=== PATIENT | female | born 1955 | race Caucasian/White ===

== ENCOUNTER 2018-11-16 08:59 | Inpatient (IN) | payer BC, OTHER ==
[~2018-11-16] VITALS: Ht 162.6 cm; Wt 113.7 kg
[2018-11-16] MEDS ORDERED: ALBUTEROL/IPRATROPIUM 2.5MG/0.5MG, 3 ML NPPB ONE (10:00)
[2018-11-16 10:01] LABS: BASOPHILS # (AUTO) 0.02 x10^3/uL (0-0.1); BASOPHILS % (AUTO) 1 % (0-1); EOSINOPHILS # (AUTO) 0.06 x10^3/uL (0-0.4); EOSINOPHILS % (AUTO) 2 % (1-7); LYMPHOCYTES # (AUTO) 0.57 x10^3/uL (1-3.4); LYMPHOCYTES % (AUTO) 14 % (22-44); MD NO; MEAN CORPUSCULAR HEMOGLOBIN 28.9 pg (27.0-34.8); MEAN CORPUSCULAR HGB CONC 33.6 g/dL (32.4-35.8); MEAN CORPUSCULAR VOLUME 85.8 fL (80-100); MEAN PLATELET VOLUME 7.6 fL (7.4-10.4); MONOCYTES # (AUTO) 0.36 x10^3/uL (0.2-0.8); MONOCYTES % (AUTO) 9 % (2-9); NEUTROPHILS # (AUTO) 3.16 x10^3/uL (1.8-6.8); NEUTROPHILS % (AUTO) 76 % (42-75); PLATELET COUNT 321 x10^3/uL (130-400); RED BLOOD COUNT 4.68 x10^6/uL (3.82-5.3); RED CELL DISTRIBUTION WIDTH 12.9 % (9.6-15.2)
[2018-11-16 10:08] LABS: RAPID INFLUENZA A Negative (Negative); RAPID INFLUENZA B Negative (Negative)
[2018-11-16 10:11] LABS: ALBUMIN 3.6 g/dL (3.4-5.0); ANION GAP 8 mmol/L (5-15); CALCIUM 8.4 mg/dL (8.5-10.1); CHLORIDE 97 mmol/L (98-107); CREATININE 1.01 mg/dL (0.55-1.02)
[2018-11-16] MEDS ORDERED: ALBUTEROL/IPRATROPIUM 2.5MG/0.5MG, 3 ML ONE (10:11)
[2018-11-16 10:15] LABS: TROPONIN I < 0.015 ng/mL (0.000-0.045)
--- NOTE | 2018-11-16 10:55 | NUR ---
Report from Ingrid SHAW. Pt resting in bed. blood drawn at this time. Pt mildy tachypnic, otherwise NAD.
[2018-11-16] MEDS ORDERED: CEFTRIAXONE PMX 1GM/50ML 50 ML IVPB ONE (11:00)
[2018-11-16] MEDS ORDERED: AZITHROMYCIN 500 MG in SODIUM CHLORIDE 0.9% 250 ML IVPB ONE (11:00)
[2018-11-16] MEDS ORDERED: SODIUM CHLORIDE FLUSH 10ML SYR IVF ONE (11:00)
[2018-11-16] MEDS ORDERED: CEFTRIAXONE PMX 1GM/50ML 50 ML ONE (11:05)
[2018-11-16] MEDS ORDERED: OMNIPAQUE 350 MG/ML, 100ML BOTTLE ONE (12:20)
[2018-11-16] MEDS ORDERED: ACETAMINOPHEN 325 MG TABLET PO PRN (12:30)
[2018-11-16] MEDS ORDERED: TEMAZEPAM 15 MG CAPSULE PO PRN (12:30)
[2018-11-16] MEDS ORDERED: DOCUSATE 100 MG CAPSULE PO PRN (12:30)
[2018-11-16] MEDS ORDERED: ONDANSETRON ODT 4 MG PO PRN (12:30)
[2018-11-16] MEDS ORDERED: hydrALAzine 20 MG/ML, 1ML IVPush PRN (12:30)
[2018-11-16] MEDS ORDERED: ONDANSETRON 2MG/ML, 2ML IVPush PRN (12:30)
[2018-11-16] MEDS ORDERED: CEFTRIAXONE PMX 1GM/50ML 50 ML IV SCH (13:00)
[2018-11-16 13:44] VITALS: BP 138/67
[2018-11-16] MEDS ORDERED: ALBUTEROL/IPRATROPIUM 2.5MG/0.5MG, 3 ML NPPB PRN (14:00)
[2018-11-16] MEDS ORDERED: AZITHROMYCIN 250 MG TABLET ONE (14:31)
[2018-11-16 14:43] VITALS: BP 134/67
[2018-11-16] MEDS: methylPREDNISolone SOD SUCC 125 MG/2 ML IVPush SCH (14:51)
[2018-11-16] MEDS: HEPARIN 5,000 UNITS/ML, 1ML SQ SCH ×2 (14:51→20:57)
[2018-11-16] MEDS: AZITHROMYCIN 250 MG TABLET PO SCH (14:51)
[2018-11-16] MEDS: NICOTINE 14MG/24 HR PATCH.TD24 TD SCH (14:56)
[2018-11-16 19:39] VITALS: BP 139/79
[2018-11-16] MEDS: FAMOTIDINE 20 MG TABLET PO SCH (20:57)
[2018-11-16] MEDS: GUAIFENESIN/DM 200-20MG, 10ML UDC PO PRN (21:03)
[2018-11-17 01:07] VITALS: BP 121/70
[2018-11-17] MEDS: methylPREDNISolone SOD SUCC 125 MG/2 ML IVPush SCH ×2 (01:28→12:39)
[2018-11-17] MEDS: HEPARIN 5,000 UNITS/ML, 1ML SQ SCH ×2 (05:05→12:30)
[2018-11-17 05:06] LABS: BASOPHILS # (AUTO) 0.01 x10^3/uL (0-0.1); BASOPHILS % (AUTO) 0 % (0-1); EOSINOPHILS # (AUTO) 0.01 x10^3/uL (0-0.4); EOSINOPHILS % (AUTO) 0 % (1-7); LYMPHOCYTES # (AUTO) 0.52 x10^3/uL (1-3.4); LYMPHOCYTES % (AUTO) 10 % (22-44); MD NO; MEAN CORPUSCULAR HEMOGLOBIN 29.1 pg (27.0-34.8); MEAN CORPUSCULAR HGB CONC 33.8 g/dL (32.4-35.8); MEAN CORPUSCULAR VOLUME 86.1 fL (80-100); MEAN PLATELET VOLUME 7.8 fL (7.4-10.4); MONOCYTES # (AUTO) 0.26 x10^3/uL (0.2-0.8); MONOCYTES % (AUTO) 5 % (2-9); NEUTROPHILS # (AUTO) 4.23 x10^3/uL (1.8-6.8); NEUTROPHILS % (AUTO) 84 % (42-75); PLATELET COUNT 343 x10^3/uL (130-400); RED BLOOD COUNT 4.46 x10^6/uL (3.82-5.3); RED CELL DISTRIBUTION WIDTH 13.1 % (9.6-15.2)
[2018-11-17] MEDS: GUAIFENESIN/DM 200-20MG, 10ML UDC PO PRN (05:06)
[2018-11-17 05:08] LABS: ALANINE AMINOTRANSFERASE 15 U/L (12-78); ALBUMIN 3.3 g/dL (3.4-5.0); ANION GAP 9 mmol/L (5-15); CALCIUM 8.4 mg/dL (8.5-10.1); CHLORIDE 96 mmol/L (98-107)
[2018-11-17 05:11] LABS: ALKALINE PHOSPHATASE 97 U/L (45-117); BILIRUBIN,TOTAL 0.7 mg/dL (0.2-1.0); CREATININE 1.22 mg/dL (0.55-1.02); TOTAL PROTEIN 7.9 g/dL (6.4-8.2)
[2018-11-17] MEDS ORDERED: SODIUM CHLORIDE 0.9% 1,000ML IVBOLUS ONE (08:00)
[2018-11-17] MEDS ORDERED: SODIUM CHLORIDE 0.9% 1,000 ML IV SCH (08:00)
[2018-11-17] MEDS: FAMOTIDINE 20 MG TABLET PO SCH (08:02)
[2018-11-17] MEDS: AZITHROMYCIN 250 MG TABLET PO SCH (08:03)
[2018-11-17 08:27] VITALS: BP 120/64
[2018-11-17] MEDS ORDERED: AZITHROMYCIN 250 MG TABLET PO SCH (09:00)
[2018-11-17] MEDS: NICOTINE 14MG/24 HR PATCH.TD24 TD SCH (12:30)
[2018-11-17] MEDS ORDERED: ALBU8.5H8 INH (13:04)
[2018-11-17] MEDS ORDERED: PRED20TA PO (13:04)
[2018-11-17] MEDS ORDERED: AZIT500T5 PO (13:04)
[2018-11-17 14:58] LABS: ANION GAP 6 mmol/L (5-15); CALCIUM 8.2 mg/dL (8.5-10.1); CHLORIDE 96 mmol/L (98-107); CREATININE 1.07 mg/dL (0.55-1.02)
[2018-11-17] MEDS ORDERED: FLUT1DIS IH (15:16)
[2018-11-17 15:17] VITALS: BP 141/74
== END 2018-11-17 17:01 | disposition home or self-care (01) | DRG 871 ==
LOC: ED 09:50 → EDIP 11:00 → 4WST 13:35
PROVIDERS: ADMIT Internal Medicine; ATTEND Internal Medicine
DX: A41.9 Sepsis, unspecified organism (principal); J15.9 Unspecified bacterial pneumonia; E87.1 Hypo-osmolality and hyponatremia; J44.0 Chronic obstructive pulmonary disease with (acute) lower respiratory infection; J44.1 Chronic obstructive pulmonary disease with (acute) exacerbation; N17.9 Acute kidney failure, unspecified; E78.00 Pure hypercholesterolemia, unspecified; E78.5 Hyperlipidemia, unspecified; F17.200 Nicotine dependence, unspecified, uncomplicated; Z66 Do not resuscitate; H35.30 Unspecified macular degeneration; I10 Essential (primary) hypertension; I35.9 Nonrheumatic aortic valve disorder, unspecified; K52.9 Noninfective gastroenteritis and colitis, unspecified; Z90.710 Acquired absence of both cervix and uterus; Z90.49 Acquired absence of other specified parts of digestive tract
CPT/HCPCS: 36415; 84145; 87400; J7620; 71046; 71275; 80048; 80053; 82040; 83605; 83880; 84484; 85025; 85379; 87040; 93005; 94640; G0378; J0696; J1644; Q9967; J2930; J7030; J7512

== ENCOUNTER 2021-05-11 16:19 | Inpatient (IN) | payer BC ==
[~2021-05-11] VITALS: Ht 162.6 cm; Wt 107.5 kg
[~2021-05-11 16:19] MED LIST: ALBU8.5H8 INH; AZIT500T10 PO; FLUT1DIS IH; PRED20TA PO
--- NOTE | 2021-05-11 16:38 | NUR ---
PROVIDER AT BEDSIDE TO DO EVALUATION
--- NOTE | 2021-05-11 16:39 | NUR ---
PT STATES HAS CHEST PAIN AND COUGH, [facility] TO HAVING PNEUMONIA AND HYPOXIA. PT WAS GIVEN ROCEPHIN AN DOXY AT [facility]. PT HOOKED UP TO OXY MASK AND HAS PAUSING WHILE SPEAKING DUE TO SOB.
[2021-05-11 17:02] LABS: MEAN CORPUSCULAR HEMOGLOBIN 26.8 pg (27.0-34.8); MEAN CORPUSCULAR HGB CONC 32.9 g/dL (32.4-35.8); MEAN PLATELET VOLUME 7.2 fL (7.4-10.4); PLATELET COUNT 566 x10^3/uL (130-400); RED BLOOD COUNT 3.45 x10^6/uL (3.82-5.3); RED CELL DISTRIBUTION WIDTH 15.6 % (9.6-15.2)
[2021-05-11 17:16] LABS: ALBUMIN 2.1 g/dL (3.4-5.0); ANION GAP 9 mmol/L (5-15); CALCIUM 8.5 mg/dL (8.5-10.1); CHLORIDE 100 mmol/L (98-107)
[2021-05-11 17:19] LABS: ALANINE AMINOTRANSFERASE 13 U/L (12-78); ALKALINE PHOSPHATASE 134 U/L (45-117); BILIRUBIN,TOTAL 0.5 mg/dL (0.2-1.0); CREATININE 1.06 mg/dL (0.55-1.02); TOTAL PROTEIN 7.1 g/dL (6.4-8.2)
[2021-05-11 18:02] LABS: <PLATELET ESTIMATE> INCREASED; <PLT MORPHOLOGY> NORMAL PLT MORPH; BAND#(MANUAL) 0.29 x10^3/uL; BANDS%(MANUAL) 1 % (0-7); LYMPH#(MANUAL) 1.73 x10^3/uL (1-3.4); LYMPHS% (MANUAL) 6 % (22-44); MONOS#(MANUAL) 1.73 x10^3/uL (0.3-2.7); MONOS% (MANUAL) 6 % (2-9); SEG#(MANUAL) 25.06 x10^3/uL (1.8-6.8); SEGS% (MANUAL) 87 % (42-75)
--- NOTE | 2021-05-11 18:02 | NUR ---
PT TAKEN OFF OXYGEN TO GET RA READING. WHEN PT REACHED 84%, PLACED BACK ON OXYGEN. PT IS NOT ON HOME OXYGEN
--- NOTE | 2021-05-11 18:02 | NUR ---
PER NO BLOOD CULTURES TO BE DRAWN BECAUSE ANTIBIOTICS GIVEN AT [facility]
[2021-05-11 18:03] LABS: ANISOCYTOSIS 1+; HYPOCHROMIA 1+; MICROCYTOSIS 1+
[2021-05-11 18:05] LABS: OVALOCYTES 1+
--- NOTE | 2021-05-11 18:17 | NUR ---
OFF FLOOR TO CT
[2021-05-11] MEDS ORDERED: ACETAMINOPHEN 500 MG TABLET ONE (18:59)
[2021-05-11] MEDS ORDERED: ACETAMINOPHEN 500 MG TABLET PO ONE (19:00)
--- NOTE | 2021-05-11 19:09 | NUR ---
REPORT GIVEN TO ELOISA SHAW TO ASSUME CARE.
--- NOTE | 2021-05-11 19:12 | NUR ---
RECEIVED BS REPORT FROM VALERIA SAL AND VALERIA NARAYAN TO ASSUME CARE OF PT. AT THIS TIME. PT. WAS MEDICATED PER MAR FOR INCREASED TEMP. PT. DENIES NEEDS AT THIS TIME. ALL MONITORS IN PLACE. ALL SAFETY MEASURES OBERVED. AWATING BED UPSTAIRS AT THIS TIME.
[2021-05-11] MEDS ORDERED: METO25TA91 PO (19:27)
[2021-05-11] MEDS ORDERED: MAGN420T PO (19:27)
[2021-05-11] MEDS ORDERED: POTA20PA25 PO (19:27)
[2021-05-11] MEDS ORDERED: HYDR25TA6 PO (19:27)
[2021-05-11] MEDS ORDERED: CALC-126 PO (19:27)
[2021-05-11] MEDS ORDERED: FURO-93 PO (19:27)
[2021-05-11] MEDS ORDERED: ASPI81TA45 PO (19:27)
[2021-05-11] MEDS ORDERED: WARF2TAB99 PO (19:27)
[2021-05-11] MEDS ORDERED: COLE1TAB2 PO (19:27)
[2021-05-11] MEDS ORDERED: VALS320T2 PO (19:27)
[2021-05-11] MEDS ORDERED: SIMV20TA19 PO (19:27)
--- NOTE | 2021-05-11 19:42 | NUR ---
SM HAS BEEN IN TO EVAL PT. FOR ADMISSION. MED REC COMPLETED.
--- NOTE | 2021-05-11 19:53 | NUR ---
FIRST ATTEMPT TO CALL REPORT TO FLOOR.
[2021-05-11] MEDS ORDERED: ONDANSETRON 2MG/ML, 2ML IVPush PRN (20:00)
[2021-05-11] MEDS ORDERED: morphine SULFATE 10 MG/ML, 1ML IVPush PRN (20:00)
[2021-05-11] MEDS ORDERED: ACETAMINOPHEN 325 MG TABLET PO PRN (20:00)
[2021-05-11] MEDS ORDERED: HYDROcodone/APAP 5/325 TABLET PO PRN (20:00)
[2021-05-11] MEDS ORDERED: ALBUTEROL HFA 90 MCG/SPRAY INH PRN (20:00)
[2021-05-11] MEDS ORDERED: DOCUSATE 100 MG CAPSULE PO PRN (20:00)
[2021-05-11] MEDS ORDERED: ENALAPRILAT 1.25 MG/ML, 2ML IVPush PRN (20:00)
[2021-05-11] MEDS ORDERED: BACLOFEN 10 MG TABLET PO PRN (20:00)
--- NOTE | 2021-05-11 20:00 | NUR ---
REPORT TO VALERIA ESQUEDA. FLOOR READY FOR PT. TRANSPORT.
--- NOTE | 2021-05-11 20:14 | NUR ---
PT. [facility] SHOWED ALLERGY TO METOPROLOL; DISCUSSED WITH PT. PT. STATES SHE IS NOT ALLERGIC TO ANYTHING AND THAT SHE TAKES METOPROLOL DAILY WITH NO ISSUES.
[2021-05-11 20:55] VITALS: BP 147/75
[2021-05-11] MEDS ORDERED: FAMOTIDINE 20 MG TABLET PO SCH (21:00)
[2021-05-11 21:22] LABS: PROTHROMBIN TIME 58.9 Seconds (9.6-11.5)
[2021-05-11] MEDS: ZOLPIDEM 5MG TABLET PO PRN (21:22)
[2021-05-11 21:23] LABS: INTERNATIONAL NORMALIZED RATIO 5.7 (0.93-1.1)
[2021-05-11] MEDS: GUAIFENESIN/DM 200-20MG, 10ML UDC PO PRN (21:23)
[2021-05-11] MEDS: SIMVASTATIN 20 MG TABLET PO SCH (21:23)
[2021-05-12 00:06] VITALS: BP 119/72
[2021-05-12] MEDS: GUAIFENESIN/DM 200-20MG, 10ML UDC PO PRN (04:17)
[2021-05-12 06:04] LABS: INTERNATIONAL NORMALIZED RATIO 6.35 (0.93-1.1); PROTHROMBIN TIME 65.5 Seconds (9.6-11.5)
[2021-05-12 06:05] LABS: ANION GAP 7 mmol/L (5-15); CALCIUM 8.8 mg/dL (8.5-10.1); CHLORIDE 103 mmol/L (98-107)
[2021-05-12 06:18] LABS: CREATININE 1.22 mg/dL (0.55-1.02)
[2021-05-12 06:38] LABS: MEAN CORPUSCULAR HEMOGLOBIN 26.3 pg (27.0-34.8); MEAN CORPUSCULAR HGB CONC 31.4 g/dL (32.4-35.8); MEAN PLATELET VOLUME 7.3 fL (7.4-10.4); PLATELET COUNT 568 x10^3/uL (130-400); RED CELL DISTRIBUTION WIDTH 15.8 % (9.6-15.2)
[2021-05-12 07:15] VITALS: BP 127/78
[2021-05-12 07:20] LABS: BAND#(MANUAL) 0.28 x10^3/uL; BANDS%(MANUAL) 1 % (0-7); LYMPH#(MANUAL) 0.85 x10^3/uL (1-3.4); LYMPHS% (MANUAL) 3 % (22-44); METAMYELOCYTES# (MANUAL) 0.28 x10^3/uL (0-0); METAMYELOCYTES% (MANUAL) 1 % (0-1); MONOS#(MANUAL) 1.13 x10^3/uL (0.3-2.7); MONOS% (MANUAL) 4 % (2-9); SEG#(MANUAL) 25.66 x10^3/uL (1.8-6.8); SEGS% (MANUAL) 91 % (42-75)
[2021-05-12 07:21] LABS: <PLATELET ESTIMATE> INCREASED; ACANTHOCYTES 1+; ANISOCYTOSIS 1+; ECHINOCYTES 1+; HYPOCHROMIA 1+; MICROCYTOSIS 1+; OVALOCYTES 1+; POLYCHROMASIA 1+
[2021-05-12 07:22] LABS: <PLT MORPHOLOGY> NORMAL PLT MORPH
[2021-05-12] MEDS: TEMPLATE NON-FORMULARY MED. (Fluticasone/Salmeterol** (Advair 100-50 Diskus**) 1 PUFF) INH SCH (09:00)
[2021-05-12] MEDS ORDERED: METOPROLOL SUCCINATE 25 MG TAB.ER.24H PO SCH (09:00)
[2021-05-12] MEDS: CEFTRIAXONE 2 GM in DEXTROSE 5% 50 ML IVPB SCH (09:00)
[2021-05-12] MEDS ORDERED: FUROSEMIDE 20 MG/2 ML IV SCH (09:00)
[2021-05-12] MEDS ORDERED: WARFARIN 2 MG TABLET PO-COUM SCH (09:00)
[2021-05-12] MEDS ORDERED: ALBUTEROL/IPRATROPIUM 2.5MG/0.5MG, 3 ML ONE (10:04)
[2021-05-12] MEDS: CALCIUM/VITAMIN D3 250-125 TABLET PO SCH (10:32)
[2021-05-12] MEDS: COLESTIPOL 1 GM TABLET PO SCH (10:32)
[2021-05-12] MEDS: LACTOBACILLUS CHEW TABLET PO SCH ×3 (10:32→20:42)
[2021-05-12] MEDS: ASPIRIN 81 MG TABLET EC PO SCH (10:32)
[2021-05-12] MEDS: HYDROCHLOROTHIAZIDE 25 MG TABLET PO SCH (10:32)
[2021-05-12] MEDS: MAGNESIUM OXIDE 400 MG TABLET PO SCH (10:32)
[2021-05-12] MEDS: POTASSIUM CHLORIDE 20 MEQ PACKET PO SCH (10:33)
[2021-05-12] MEDS: CARVEDILOL 3.125 MG TABLET PO SCH ×2 (10:38→18:02)
[2021-05-12] MEDS: VALSARTAN 320 MG TABLET PO SCH (10:38)
[2021-05-12] MEDS: DOXYCYCLINE 100 MG in DEXTROSE 5% 250 ML IV SCH ×2 (10:47→13:00)
[2021-05-12 11:52] LABS: TROPONIN I < 0.015 ng/mL (0.000-0.045)
[2021-05-12 14:32] VITALS: BP 104/67
[2021-05-12] MEDS ORDERED: ALBUTEROL/IPRATROPIUM 2.5MG/0.5MG, 3 ML NPPB SCH (15:00)
[2021-05-12 19:40] LABS: ANION GAP 6 mmol/L (5-15); CALCIUM 8.4 mg/dL (8.5-10.1); CHLORIDE 103 mmol/L (98-107); CREATININE 0.98 mg/dL (0.55-1.02)
[2021-05-12 19:58] VITALS: BP 100/64
[2021-05-12] MEDS: SODIUM CHLORIDE 0.9% 500 ML IV SCH ×2 (20:41→23:54)
[2021-05-12] MEDS: FAMOTIDINE 20 MG TABLET PO SCH (20:42)
[2021-05-12] MEDS: SIMVASTATIN 20 MG TABLET PO SCH (20:42)
[2021-05-12] MEDS: ALBUTEROL-IPRATROPIUM MDI INH INH SCH (20:56)
[2021-05-12] MEDS: ZOLPIDEM 5MG TABLET PO PRN (21:49)
[2021-05-12] MEDS: ACETAMINOPHEN 325 MG TABLET PO PRN (21:49)
[2021-05-13 00:21] VITALS: BP 108/66
[2021-05-13] MEDS: DOXYCYCLINE 100 MG in DEXTROSE 5% 250 ML IV SCH ×2 (00:53→13:40)
[2021-05-13] MEDS: SODIUM CHLORIDE 0.9% 500 ML IV SCH ×3 (03:20→11:00)
[2021-05-13] MEDS: ALBUTEROL-IPRATROPIUM MDI INH INH SCH ×4 (05:40→21:01)
[2021-05-13] MEDS: CARVEDILOL 3.125 MG TABLET PO SCH ×2 (05:40→17:10)
[2021-05-13 05:48] LABS: MEAN CORPUSCULAR HGB CONC 31.9 g/dL (32.4-35.8); MEAN PLATELET VOLUME 7.3 fL (7.4-10.4); PLATELET COUNT 635 x10^3/uL (130-400); RED BLOOD COUNT 3.25 x10^6/uL (3.82-5.3); RED CELL DISTRIBUTION WIDTH 16.2 % (9.6-15.2)
[2021-05-13 06:01] LABS: INTERNATIONAL NORMALIZED RATIO 5.02 (0.93-1.1)
[2021-05-13 06:11] LABS: CHLORIDE 103 mmol/L (98-107)
[2021-05-13] MEDS: CEFTRIAXONE 2 GM in DEXTROSE 5% 50 ML IVPB SCH (06:11)
[2021-05-13 06:17] LABS: BAND#(MANUAL) 0.41 x10^3/uL; BANDS%(MANUAL) 2 % (0-7); EOS#(MANUAL) 0.41 x10^3/uL (0.0-0.4); EOS% (MANUAL) 2 % (1-7); LYMPH#(MANUAL) 0.41 x10^3/uL (1-3.4); LYMPHS% (MANUAL) 2 % (22-44); METAMYELOCYTES# (MANUAL) 0.21 x10^3/uL (0-0); METAMYELOCYTES% (MANUAL) 1 % (0-1); MONOS#(MANUAL) 1.03 x10^3/uL (0.3-2.7); MONOS% (MANUAL) 5 % (2-9); SEG#(MANUAL) 18.04 x10^3/uL (1.8-6.8); SEGS% (MANUAL) 88 % (42-75)
[2021-05-13 06:18] LABS: % IRON SATURATION 7 % (20-55); ANION GAP 8 mmol/L (5-15); CALCIUM 8.5 mg/dL (8.5-10.1); ECHINOCYTES 1+; FREE T4 (FREE THYROXINE) 1.44 ng/dL (0.76-1.46); IRON LEVEL 21 mcg/dL (50-170); OVALOCYTES 1+; TOTAL IRON BINDING CAPACITY 283 mcg/dL (250-450)
[2021-05-13 06:19] LABS: ANISOCYTOSIS 1+; HYPOCHROMIA 1+; POLYCHROMASIA 1+
[2021-05-13 06:20] LABS: <PLATELET ESTIMATE> INCREASED; <PLT MORPHOLOGY> NORMAL PLT MORPH
[2021-05-13 08:26] VITALS: BP 171/78
[2021-05-13] MEDS: LACTOBACILLUS CHEW TABLET PO SCH ×3 (08:41→21:01)
[2021-05-13] MEDS: POTASSIUM CHLORIDE 20 MEQ PACKET PO SCH (08:41)
[2021-05-13] MEDS: VALSARTAN 320 MG TABLET PO SCH (08:41)
[2021-05-13] MEDS: MAGNESIUM OXIDE 400 MG TABLET PO SCH (08:42)
[2021-05-13] MEDS: HYDROCHLOROTHIAZIDE 25 MG TABLET PO SCH (08:42)
[2021-05-13] MEDS: ASPIRIN 81 MG TABLET EC PO SCH (08:42)
[2021-05-13] MEDS: CALCIUM/VITAMIN D3 250-125 TABLET PO SCH (08:42)
[2021-05-13] MEDS: COLESTIPOL 1 GM TABLET PO SCH (08:43)
[2021-05-13] MEDS: TEMPLATE NON-FORMULARY MED. (Fluticasone/Salmeterol** (Advair 100-50 Diskus**) 1 PUFF) INH SCH (08:44)
[2021-05-13 12:29] VITALS: BP 134/77
[2021-05-13 19:44] VITALS: BP 141/86
[2021-05-13] MEDS: FAMOTIDINE 20 MG TABLET PO SCH (21:01)
[2021-05-13] MEDS: SIMVASTATIN 20 MG TABLET PO SCH (21:01)
[2021-05-13] MEDS: ACETAMINOPHEN 325 MG TABLET PO PRN (22:43)
[2021-05-14] VITALS (7 sets, daily range): BP systolic 99–123; BP diastolic 58–74
[2021-05-14] MEDS: DOXYCYCLINE 100 MG in DEXTROSE 5% 250 ML IV SCH ×2 (01:21→14:56)
[2021-05-14] MEDS: ALBUTEROL-IPRATROPIUM MDI INH INH SCH ×4 (05:46→21:38)
[2021-05-14] MEDS: CARVEDILOL 3.125 MG TABLET PO SCH ×2 (05:47→19:08)
[2021-05-14 06:06] LABS: PROTHROMBIN TIME 59.6 Seconds (9.6-11.5)
[2021-05-14 06:07] LABS: INTERNATIONAL NORMALIZED RATIO 5.76 (0.93-1.1)
[2021-05-14] MEDS: CEFTRIAXONE 2 GM in DEXTROSE 5% 50 ML IVPB SCH (06:53)
[2021-05-14] MEDS: TEMPLATE NON-FORMULARY MED. (Fluticasone/Salmeterol** (Advair 100-50 Diskus**) 1 PUFF) INH SCH (09:00)
[2021-05-14] MEDS ORDERED: ZINC SULFATE 220 MG CAPSULE PO SCH (09:00)
[2021-05-14] MEDS: HYDROCHLOROTHIAZIDE 25 MG TABLET PO SCH (09:00)
[2021-05-14] MEDS: CALCIUM/VITAMIN D3 250-125 TABLET PO SCH (09:00)
[2021-05-14] MEDS: VALSARTAN 320 MG TABLET PO SCH (09:00)
[2021-05-14] MEDS ORDERED: CYANOCOBALAMIN 1,000 MCG/ML, 1ML IM ONE (09:00)
[2021-05-14 10:13] LABS: MEAN PLATELET VOLUME 7.2 fL (7.4-10.4); PLATELET COUNT 616 x10^3/uL (130-400); RED BLOOD COUNT 3.13 x10^6/uL (3.82-5.3); RED CELL DISTRIBUTION WIDTH 15.9 % (9.6-15.2)
[2021-05-14 10:41] LABS: BAND#(MANUAL) 0.44 x10^3/uL; BANDS%(MANUAL) 3 % (0-7); METAMYELOCYTES# (MANUAL) 0.44 x10^3/uL (0-0); METAMYELOCYTES% (MANUAL) 3 % (0-1); SEG#(MANUAL) 11.83 x10^3/uL (1.8-6.8); SEGS% (MANUAL) 81 % (42-75)
[2021-05-14 10:42] LABS: ANISOCYTOSIS 1+; LYMPH#(MANUAL) 1.17 x10^3/uL (1-3.4); LYMPHS% (MANUAL) 8 % (22-44); MONOS#(MANUAL) 0.73 x10^3/uL (0.3-2.7); MONOS% (MANUAL) 5 % (2-9)
[2021-05-14 10:43] LABS: HYPOCHROMIA 1+; OVALOCYTES 1+
[2021-05-14 10:44] LABS: <PLATELET ESTIMATE> INCREASED; <PLT MORPHOLOGY> NORMAL PLT MORPH
[2021-05-14 10:45] LABS: POLYCHROMASIA 1+
[2021-05-14] MEDS: ZINC SULFATE 220 MG CAPSULE PO SCH (11:20)
[2021-05-14] MEDS: MAGNESIUM OXIDE 400 MG TABLET PO SCH (11:20)
[2021-05-14] MEDS: ASPIRIN 81 MG TABLET EC PO SCH (11:20)
[2021-05-14] MEDS: LACTOBACILLUS CHEW TABLET PO SCH ×3 (11:21→21:39)
[2021-05-14] MEDS: POTASSIUM CHLORIDE 20 MEQ PACKET PO SCH (11:22)
[2021-05-14] MEDS: CHOLECALCIFEROL 5,000u TAB PO SCH (11:22)
[2021-05-14] MEDS: MULTIVITS,STRESS FORMULA 1 TABLET PO SCH (11:22)
[2021-05-14] MEDS: COLESTIPOL 1 GM TABLET PO SCH (11:22)
[2021-05-14] MEDS ORDERED: SODIUM CHLORIDE 0.9% IV ONE (12:00)
[2021-05-14] MEDS ORDERED: IRON DEXTRAN COMPLEX IV ONE (12:00)
[2021-05-14] MEDS ORDERED: EPINEPHRINE 1 MG/ML, 1ML IV PRN (12:30)
[2021-05-14] MEDS ORDERED: IRON DEXTRAN COMPLEX 25 MG in SODIUM CHLORIDE 0.9% 50 ML IV ONE (13:00)
[2021-05-14] MEDS: ACETAMINOPHEN 325 MG TABLET PO PRN ×2 (13:41→21:38)
[2021-05-14] MEDS: GUAIFENESIN/DM 200-20MG, 10ML UDC PO PRN ×2 (13:41→21:39)
[2021-05-14] MEDS: FUROSEMIDE 40 MG/4 ML IV SCH ×2 (13:50→21:38)
[2021-05-14] MEDS ORDERED: IRON DEXTRAN COMPLEX 1,400 MG in SODIUM CHLORIDE 0.9% 250 ML IV ONE (14:00)
[2021-05-14] MEDS: ASCORBIC ACID 500 MG TABLET PO SCH (16:24)
[2021-05-14] MEDS: FAMOTIDINE 20 MG TABLET PO SCH (21:39)
[2021-05-14] MEDS: SIMVASTATIN 20 MG TABLET PO SCH (21:39)
[2021-05-14] MEDS: ZOLPIDEM 5MG TABLET PO PRN (21:40)
[2021-05-15] VITALS (7 sets, daily range): BP systolic 111–170; BP diastolic 63–92
[2021-05-15] MEDS ORDERED: HYDROcodone/APAP 5/325 TABLET PO ONE (02:00)
[2021-05-15] MEDS: DOXYCYCLINE 100 MG in DEXTROSE 5% 250 ML IV SCH ×2 (02:17→13:57)
[2021-05-15] MEDS: GUAIFENESIN/DM 200-20MG, 10ML UDC PO PRN (04:48)
[2021-05-15] MEDS: ACETAMINOPHEN 325 MG TABLET PO PRN ×2 (04:49→21:45)
[2021-05-15] MEDS: CARVEDILOL 3.125 MG TABLET PO SCH ×2 (06:00→18:13)
[2021-05-15] MEDS: ALBUTEROL-IPRATROPIUM MDI INH INH SCH ×2 (06:06→11:00)
[2021-05-15 06:19] LABS: ANION GAP 8 mmol/L (5-15); CALCIUM 8.7 mg/dL (8.5-10.1); CHLORIDE 96 mmol/L (98-107)
[2021-05-15 06:21] LABS: CREATININE 0.93 mg/dL (0.55-1.02)
[2021-05-15 06:25] LABS: INTERNATIONAL NORMALIZED RATIO 7.28 (0.93-1.1); PROTHROMBIN TIME 74.9 Seconds (9.6-11.5)
[2021-05-15 06:59] LABS: MEAN CORPUSCULAR HEMOGLOBIN 27.1 pg (27.0-34.8); MEAN CORPUSCULAR HGB CONC 33.2 g/dL (32.4-35.8); PLATELET COUNT 537 x10^3/uL (130-400); RED BLOOD COUNT 3.25 x10^6/uL (3.82-5.3); RED CELL DISTRIBUTION WIDTH 15.6 % (9.6-15.2)
[2021-05-15 07:25] LABS: BAND#(MANUAL) 0.36 x10^3/uL; BANDS%(MANUAL) 3 % (0-7); LYMPH#(MANUAL) 1.43 x10^3/uL (1-3.4); LYMPHS% (MANUAL) 12 % (22-44); METAMYELOCYTES# (MANUAL) 0.12 x10^3/uL (0-0); METAMYELOCYTES% (MANUAL) 1 % (0-1); MONOS#(MANUAL) 0.83 x10^3/uL (0.3-2.7); MONOS% (MANUAL) 7 % (2-9); SEG#(MANUAL) 9.16 x10^3/uL (1.8-6.8); SEGS% (MANUAL) 77 % (42-75)
[2021-05-15 07:26] LABS: ANISOCYTOSIS 1+; HYPOCHROMIA 1+; MICROCYTOSIS 1+; OVALOCYTES 1+; POLYCHROMASIA 1+; TEAR DROPS 1+
[2021-05-15 07:27] LABS: <PLATELET ESTIMATE> INCREASED; <PLT MORPHOLOGY> NORMAL PLT MORPH; ACANTHOCYTES 1+; TOXIC GRAN 1+
[2021-05-15] MEDS: CEFTRIAXONE 2 GM in DEXTROSE 5% 50 ML IVPB SCH (08:10)
[2021-05-15] MEDS: ASCORBIC ACID 500 MG TABLET PO SCH ×2 (08:23→15:38)
[2021-05-15] MEDS: VALSARTAN 320 MG TABLET PO SCH (09:00)
[2021-05-15] MEDS: TEMPLATE NON-FORMULARY MED. (Fluticasone/Salmeterol** (Advair 100-50 Diskus**) 1 PUFF) INH SCH (09:00)
[2021-05-15] MEDS: HYDROCHLOROTHIAZIDE 25 MG TABLET PO SCH (09:33)
[2021-05-15] MEDS: POTASSIUM CHLORIDE 20 MEQ PACKET PO SCH (09:33)
[2021-05-15] MEDS: CALCIUM/VITAMIN D3 250-125 TABLET PO SCH (09:33)
[2021-05-15] MEDS: MAGNESIUM OXIDE 400 MG TABLET PO SCH (09:33)
[2021-05-15] MEDS: MULTIVITS,STRESS FORMULA 1 TABLET PO SCH (09:33)
[2021-05-15] MEDS: LACTOBACILLUS CHEW TABLET PO SCH ×3 (09:34→21:10)
[2021-05-15] MEDS: ZINC SULFATE 220 MG CAPSULE PO SCH (09:34)
[2021-05-15] MEDS: FUROSEMIDE 40 MG/4 ML IV SCH ×2 (09:34→21:10)
[2021-05-15] MEDS: CHOLECALCIFEROL 5,000u TAB PO SCH (09:34)
[2021-05-15] MEDS: ASPIRIN 81 MG TABLET EC PO SCH (09:34)
[2021-05-15] MEDS: COLESTIPOL 1 GM TABLET PO SCH (09:34)
[2021-05-15] MEDS ORDERED: PHYTONADIONE 5 MG TABLET PO ONE (15:30)
[2021-05-15] MEDS: FAMOTIDINE 20 MG TABLET PO SCH (21:00)
[2021-05-15] MEDS: SIMVASTATIN 20 MG TABLET PO SCH (21:10)
[2021-05-16] MEDS: DOXYCYCLINE 100 MG in DEXTROSE 5% 250 ML IV SCH ×2 (00:51→12:53)
[2021-05-16 01:20] VITALS: BP 147/84
[2021-05-16 05:48] LABS: INTERNATIONAL NORMALIZED RATIO 2.03 (0.93-1.1); PROTHROMBIN TIME 21.4 Seconds (9.6-11.5)
[2021-05-16] MEDS: CARVEDILOL 3.125 MG TABLET PO SCH ×2 (06:00→17:09)
[2021-05-16 07:21] VITALS: BP 128/76
[2021-05-16] MEDS: CHOLECALCIFEROL 5,000u TAB PO SCH (08:09)
[2021-05-16] MEDS: HYDROCHLOROTHIAZIDE 25 MG TABLET PO SCH (08:09)
[2021-05-16] MEDS: MAGNESIUM OXIDE 400 MG TABLET PO SCH (08:09)
[2021-05-16] MEDS: VALSARTAN 320 MG TABLET PO SCH (08:09)
[2021-05-16] MEDS: LACTOBACILLUS CHEW TABLET PO SCH ×3 (08:09→20:38)
[2021-05-16] MEDS: POTASSIUM CHLORIDE 20 MEQ PACKET PO SCH (08:09)
[2021-05-16] MEDS: ASPIRIN 81 MG TABLET EC PO SCH (08:09)
[2021-05-16] MEDS: CALCIUM/VITAMIN D3 250-125 TABLET PO SCH (08:09)
[2021-05-16] MEDS: ASCORBIC ACID 500 MG TABLET PO SCH ×2 (08:09→17:08)
[2021-05-16] MEDS: MULTIVITS,STRESS FORMULA 1 TABLET PO SCH (08:09)
[2021-05-16] MEDS: COLESTIPOL 1 GM TABLET PO SCH (08:09)
[2021-05-16] MEDS: ZINC SULFATE 220 MG CAPSULE PO SCH (08:09)
[2021-05-16] MEDS: CEFTRIAXONE 2 GM in DEXTROSE 5% 50 ML IVPB SCH (08:10)
[2021-05-16] MEDS: TEMPLATE NON-FORMULARY MED. (Fluticasone/Salmeterol** (Advair 100-50 Diskus**) 1 PUFF) INH SCH (08:10)
[2021-05-16] MEDS ORDERED: PROPOFOL 10 MG/ML, 20ML ONE (09:04)
[2021-05-16] MEDS ORDERED: ATROPINE SYRINGE 0.1 MG/ML, 10ML ONE (09:06)
[2021-05-16 12:58] VITALS: BP 154/72
[2021-05-16 17:11] VITALS: BP 124/69
[2021-05-16] MEDS ORDERED: WARFARIN 2 MG TABLET PO-COUM ONE (18:00)
[2021-05-16 19:09] VITALS: BP 123/76
[2021-05-16] MEDS: FAMOTIDINE 20 MG TABLET PO SCH (20:37)
[2021-05-16] MEDS: SIMVASTATIN 20 MG TABLET PO SCH (20:38)
[2021-05-17] MEDS: DOXYCYCLINE 100 MG in DEXTROSE 5% 250 ML IV SCH ×2 (00:27→12:23)
[2021-05-17 02:30] VITALS: BP 125/74
[2021-05-17 04:59] LABS: MEAN CORPUSCULAR HEMOGLOBIN 27.3 pg (27.0-34.8); MEAN CORPUSCULAR HGB CONC 33.5 g/dL (32.4-35.8); PLATELET COUNT 642 x10^3/uL (130-400); RED BLOOD COUNT 3.48 x10^6/uL (3.82-5.3); RED CELL DISTRIBUTION WIDTH 15.6 % (9.6-15.2)
[2021-05-17 05:07] LABS: ALBUMIN 2.5 g/dL (3.4-5.0); ANION GAP 6 mmol/L (5-15); CALCIUM 9.2 mg/dL (8.5-10.1); CHLORIDE 90 mmol/L (98-107); CREATININE 0.83 mg/dL (0.55-1.02); INTERNATIONAL NORMALIZED RATIO 1.33 (0.93-1.1); PROTHROMBIN TIME 14.2 Seconds (9.6-11.5)
[2021-05-17 05:38] VITALS: BP 108/73
[2021-05-17] MEDS: CARVEDILOL 3.125 MG TABLET PO SCH ×2 (05:52→17:09)
[2021-05-17 06:02] LABS: BAND#(MANUAL) 0.73 x10^3/uL; BANDS%(MANUAL) 4 % (0-7); EOS% (MANUAL) 2 % (1-7); LYMPH#(MANUAL) 2.18 x10^3/uL (1-3.4); LYMPHS% (MANUAL) 12 % (22-44); METAMYELOCYTES# (MANUAL) 0.55 x10^3/uL (0-0); METAMYELOCYTES% (MANUAL) 3 % (0-1); MONOS#(MANUAL) 0.55 x10^3/uL (0.3-2.7); MONOS% (MANUAL) 3 % (2-9); SEG#(MANUAL) 13.83 x10^3/uL (1.8-6.8); SEGS% (MANUAL) 76 % (42-75)
[2021-05-17 06:03] LABS: ANISOCYTOSIS 1+; EOS#(MANUAL) 0.36 x10^3/uL (0.0-0.4); HYPOCHROMIA 1+; OVALOCYTES 1+; POLYCHROMASIA 1+
[2021-05-17 06:05] LABS: <PLATELET ESTIMATE> INCREASED; <PLT MORPHOLOGY> NORMAL PLT MORPH
[2021-05-17 07:05] VITALS: BP 116/70
[2021-05-17] MEDS: CEFTRIAXONE 2 GM in DEXTROSE 5% 50 ML IVPB SCH (07:28)
[2021-05-17] MEDS: TEMPLATE NON-FORMULARY MED. (Fluticasone/Salmeterol** (Advair 100-50 Diskus**) 1 PUFF) INH SCH (08:13)
[2021-05-17] MEDS: ASCORBIC ACID 500 MG TABLET PO SCH ×2 (08:23→17:09)
[2021-05-17] MEDS: COLESTIPOL 1 GM TABLET PO SCH (08:23)
[2021-05-17] MEDS: CHOLECALCIFEROL 5,000u TAB PO SCH (08:23)
[2021-05-17] MEDS: ASPIRIN 81 MG TABLET EC PO SCH (08:23)
[2021-05-17] MEDS: POTASSIUM CHLORIDE 20 MEQ PACKET PO SCH (08:23)
[2021-05-17] MEDS: HYDROCHLOROTHIAZIDE 25 MG TABLET PO SCH (08:23)
[2021-05-17] MEDS: LACTOBACILLUS CHEW TABLET PO SCH ×3 (08:23→21:37)
[2021-05-17] MEDS: VALSARTAN 320 MG TABLET PO SCH (08:23)
[2021-05-17] MEDS: MAGNESIUM OXIDE 400 MG TABLET PO SCH (08:23)
[2021-05-17] MEDS: MULTIVITS,STRESS FORMULA 1 TABLET PO SCH (08:24)
[2021-05-17] MEDS: ZINC SULFATE 220 MG CAPSULE PO SCH (08:24)
[2021-05-17] MEDS: CALCIUM/VITAMIN D3 250-125 TABLET PO SCH (08:24)
[2021-05-17 14:13] VITALS: BP 104/71
[2021-05-17 17:09] VITALS: BP 110/69
[2021-05-17] MEDS ORDERED: WARFARIN 5 MG TABLET PO-COUM ONE (18:00)
[2021-05-17 19:13] VITALS: BP 106/71
[2021-05-17] MEDS: FAMOTIDINE 20 MG TABLET PO SCH (21:37)
[2021-05-17] MEDS: SIMVASTATIN 20 MG TABLET PO SCH (21:37)
[2021-05-18] MEDS: DOXYCYCLINE 100 MG in DEXTROSE 5% 250 ML IV SCH (00:41)
[2021-05-18 02:00] VITALS: BP 115/73
[2021-05-18] MEDS: CARVEDILOL 3.125 MG TABLET PO SCH (05:17)
[2021-05-18 05:46] LABS: INTERNATIONAL NORMALIZED RATIO 1.78 (0.93-1.1); PROTHROMBIN TIME 18.8 Seconds (9.6-11.5)
[2021-05-18 05:47] LABS: BASOPHILS % (AUTO) 0 % (0-1); EOSINOPHILS % (AUTO) 3 % (1-7); LYMPHOCYTES % (AUTO) 11 % (22-44); MEAN CORPUSCULAR HEMOGLOBIN 27.1 pg (27.0-34.8); MEAN CORPUSCULAR HGB CONC 32.9 g/dL (32.4-35.8); MEAN PLATELET VOLUME 7.1 fL (7.4-10.4); MONOCYTES % (AUTO) 6 % (2-9); NEUTROPHILS % (AUTO) 80 % (42-75); PLATELET COUNT 488 x10^3/uL (130-400); RED BLOOD COUNT 3.31 x10^6/uL (3.82-5.3); RED CELL DISTRIBUTION WIDTH 16.4 % (9.6-15.2)
[2021-05-18 05:48] LABS: ALBUMIN 2.2 g/dL (3.4-5.0); ANION GAP 5 mmol/L (5-15); CALCIUM 8.8 mg/dL (8.5-10.1); CHLORIDE 93 mmol/L (98-107); CREATININE 0.76 mg/dL (0.55-1.02)
[2021-05-18 06:32] VITALS: BP 113/64
[2021-05-18] MEDS: CEFTRIAXONE 2 GM in DEXTROSE 5% 50 ML IVPB SCH (07:31)
[2021-05-18] MEDS: ASPIRIN 81 MG TABLET EC PO SCH (07:56)
[2021-05-18] MEDS: ASCORBIC ACID 500 MG TABLET PO SCH (07:56)
[2021-05-18] MEDS: COLESTIPOL 1 GM TABLET PO SCH (07:56)
[2021-05-18] MEDS: POTASSIUM CHLORIDE 20 MEQ PACKET PO SCH (07:57)
[2021-05-18] MEDS: VALSARTAN 320 MG TABLET PO SCH (07:57)
[2021-05-18] MEDS: ZINC SULFATE 220 MG CAPSULE PO SCH (07:57)
[2021-05-18] MEDS: MULTIVITS,STRESS FORMULA 1 TABLET PO SCH (07:57)
[2021-05-18] MEDS: MAGNESIUM OXIDE 400 MG TABLET PO SCH (07:57)
[2021-05-18] MEDS: HYDROCHLOROTHIAZIDE 25 MG TABLET PO SCH (07:57)
[2021-05-18] MEDS: CHOLECALCIFEROL 5,000u TAB PO SCH (07:58)
[2021-05-18] MEDS: LACTOBACILLUS CHEW TABLET PO SCH (07:58)
[2021-05-18] MEDS: TEMPLATE NON-FORMULARY MED. (Fluticasone/Salmeterol** (Advair 100-50 Diskus**) 1 PUFF) INH SCH (07:58)
[2021-05-18] MEDS: CALCIUM/VITAMIN D3 250-125 TABLET PO SCH (07:58)
[2021-05-18] MEDS ORDERED: POTASSIUM CHLORIDE 20 MEQ TAB.ER.PRT PO ONE (09:00)
[2021-05-18 12:17] VITALS: BP 98/62
[2021-05-18] MEDS ORDERED: CEFD300C37 PO (12:59)
[2021-05-18] MEDS ORDERED: WARFARIN 5 MG TABLET PO-COUM ONE (18:00)
== END 2021-05-18 14:36 | disposition home or self-care (01) | DRG 871 ==
LOC: ED 17:55 → EDIP 18:42 → 4EST 20:19 → 5SO 05-15 08:57 → DCLOUNGE 05-18 14:09
PROVIDERS: ADMIT Family Medicine; ATTEND Family Medicine
PROC: 5A2204Z Restoration of Cardiac Rhythm, Single (ICD-10-PCS; principal; 2021-05-16 09:00)
DX: A41.9 Sepsis, unspecified organism (principal); J18.9 Pneumonia, unspecified organism; J96.01 Acute respiratory failure with hypoxia; D68.9 Coagulation defect, unspecified; E87.1 Hypo-osmolality and hyponatremia; E46 Unspecified protein-calorie malnutrition; I48.92 Unspecified atrial flutter; N17.9 Acute kidney failure, unspecified; J44.0 Chronic obstructive pulmonary disease with (acute) lower respiratory infection; J44.1 Chronic obstructive pulmonary disease with (acute) exacerbation; Z68.41 Body mass index [BMI] 40.0-44.9, adult; D50.9 Iron deficiency anemia, unspecified; E78.5 Hyperlipidemia, unspecified; E66.01 Morbid (severe) obesity due to excess calories; E87.6 Hypokalemia; I10 Essential (primary) hypertension; I44.1 Atrioventricular block, second degree; I48.91 Unspecified atrial fibrillation; R65.20 Severe sepsis without septic shock; Z20.822 Contact with and (suspected) exposure to COVID-19; Z66 Do not resuscitate; Z95.3 Presence of xenogenic heart valve; Z90.710 Acquired absence of both cervix and uterus; Z87.891 Personal history of nicotine dependence; Z85.038 Personal history of other malignant neoplasm of large intestine; Z82.49 Family history of ischemic heart disease and other diseases of the circulatory system; Z85.068 Personal history of other malignant neoplasm of small intestine; Z79.82 Long term (current) use of aspirin; Z79.01 Long term (current) use of anticoagulants; Z82.0 Family history of epilepsy and other diseases of the nervous system
CPT/HCPCS: 36415; 36600; 70450; 71045; 71275; 80048; 80053; 80069; 82803; 83540; 83550; 83605; 83735; 83880; 84439; 84443; 84484; 85025; 85610; 93005; 93306; 94640; C1760; G0378; J0696; J1750; J1940; J2704; J7060; U0005; J3420; J7040; J7050; U0003